=== PATIENT | male | born 1995 | race African-American/Black ===

== ENCOUNTER 2021-11-12 17:51 | Inpatient (IN) | payer OTHER ==
[2021-11-12 19:53] VITALS: BMI 23.6
[2021-11-12] MEDS ORDERED: MAG HYDROX/AL HYDROX/SIMETH 30 ML UNIT-DOSE CUP PO PRN (21:44)
[2021-11-12] MEDS ORDERED: IBUPROFEN 400 MG TABLET (FP) PO PRN (21:44)
[2021-11-12] MEDS ORDERED: P-EPHED 60MG/TRIPROLIDI 2.5MG TABLET PO PRN (21:44)
[2021-11-12] MEDS ORDERED: MAGNESIUM CITRATE 300 ML BOTTLE PO PRN (21:44)
[2021-11-12] MEDS ORDERED: ACETAMINOPHEN 325 MG TABLET (FP) PO PRN (21:44)
[2021-11-12] MEDS ORDERED: MAGNESIUM HYDROX 2400MG/30ML ORAL SUSPENSION 30 ML CUP PO PRN (21:44)
[2021-11-12] MEDS ORDERED: LOPERAMIDE HCL 2 MG CAPSULE PO PRN (21:44)
[2021-11-12] MEDS ORDERED: NICOTINE POLACRILEX 2 MG GUM BUC PRN (21:44)
[2021-11-12] MEDS ORDERED: guaiFENesin 200 MG/10 ML 10 ML UNIT-DOSE CUPS PO PRN (21:44)
[2021-11-13] MEDS: MELATONIN 5 MG TABLETS PO SCH ×2 (01:09→21:37)
[2021-11-13] MEDS: THIAMINE HCL 100 MG TABLET (FP) PO SCH ×2 (01:09→21:37)
[2021-11-13] MEDS: PRENATAL VITAMINS W/ FOLIC ACID TABLET (FP) PO SCH (11:11)
[2021-11-13] MEDS: NICOTINE 14 MG/24 HOURS TOPICAL PATCH TD SCH (11:13)
[2021-11-13] MEDS: hydrOXYzine PAMOATE 25 MG CAPSULE (FP) PO PRN ×2 (11:13→21:39)
[2021-11-13 12:29] LABS: URINE APPEARANCE CLEAR; URINE BILIRUBIN NEGATIVE (NEGATIVE); URINE COLOR YELLOW; URINE GLUCOSE (UA) NEGATIVE (NEGATIVE); URINE KETONE NEGATIVE (NEGATIVE); URINE LEUK ESTERASE NEGATIVE (NEGATIVE); URINE NITRITE NEGATIVE (NEGATIVE); URINE PROTEIN NEGATIVE (NEGATIVE)
[2021-11-13 12:44] LABS: HEMATOCRIT 44.9 % (35.4-49); HEMOGLOBIN 14.9 GM/dL (11.7-16.9); MCH 29.3 pg (25.7-33.7); MCHC 33.1 g/dl (32.0-35.9); MEAN CELL VOLUME 88.7 fl (80-96); MEAN PLT VOLUME 10.2 fl (7.5-11.1); PLATELET COUNT 188 10^3/uL (134-434); RBC 5.07 M/mm3 (4.00-5.60); RDW 13.6 % (11.9-15.9); WHITE BLOOD COUNT 4.7 K/mm3 (4.0-10.0)
[2021-11-13 13:22] LABS: ALBUMIN 3.4 g/dl (3.4-5.0)
[2021-11-13 13:25] LABS: CREATININE 1.1 mg/dL (0.55-1.3)
[2021-11-13 13:27] LABS: BILIRUBIN,TOTAL 1.1 mg/dL (0.2-1); TOT PROT 6.2 g/dl (6.4-8.2)
[2021-11-13] MEDS ORDERED: BENZOYL PEROXIDE 5% 60 GM GEL..GRAM. TP ONE (13:30)
[2021-11-13 13:42] LABS: SYPHILIS W/ RPR CONF NON-REACTIVE (NONREACTIVE)
[2021-11-13] MEDS: TOLNAFTATE 1% CREAM 15 GM TUBE TP SCH ×2 (14:33→21:38)
[2021-11-14] MEDS: hydrOXYzine PAMOATE 25 MG CAPSULE (FP) PO PRN (08:31)
[2021-11-14] MEDS: TOLNAFTATE 1% CREAM 15 GM TUBE TP SCH ×2 (10:21→21:48)
[2021-11-14] MEDS: PRENATAL VITAMINS W/ FOLIC ACID TABLET (FP) PO SCH (10:21)
[2021-11-14] MEDS: NICOTINE 14 MG/24 HOURS TOPICAL PATCH TD SCH (10:21)
[2021-11-14] MEDS: MELATONIN 5 MG TABLETS PO SCH (21:48)
[2021-11-14] MEDS: THIAMINE HCL 100 MG TABLET (FP) PO SCH (21:48)
[2021-11-14] MEDS: CALCIUM 500MG/VIT-D 200 UNITS COMBO TABLET (FP) PO SCH (21:56)
[2021-11-15] MEDS: NICOTINE 14 MG/24 HOURS TOPICAL PATCH TD SCH (10:07)
[2021-11-15] MEDS: PRENATAL VITAMINS W/ FOLIC ACID TABLET (FP) PO SCH (10:07)
[2021-11-15] MEDS: TOLNAFTATE 1% CREAM 15 GM TUBE TP SCH ×2 (10:07→22:06)
[2021-11-15] MEDS: COLLOIDAL OATMEAL 1 BAR EACH TP PRN (14:25)
[2021-11-15] MEDS: CALCIUM 500MG/VIT-D 200 UNITS COMBO TABLET (FP) PO SCH (21:59)
[2021-11-15] MEDS: THIAMINE HCL 100 MG TABLET (FP) PO SCH (21:59)
[2021-11-15] MEDS: MELATONIN 5 MG TABLETS PO SCH (22:00)
[2021-11-16] MEDS: PRENATAL VITAMINS W/ FOLIC ACID TABLET (FP) PO SCH (10:15)
[2021-11-16] MEDS: NICOTINE 14 MG/24 HOURS TOPICAL PATCH TD SCH (10:15)
[2021-11-16] MEDS: hydrOXYzine PAMOATE 25 MG CAPSULE (FP) PO PRN (10:17)
[2021-11-16] MEDS: TOLNAFTATE 1% CREAM 15 GM TUBE TP SCH ×2 (11:00→21:38)
[2021-11-16] MEDS: CALCIUM 500MG/VIT-D 200 UNITS COMBO TABLET (FP) PO SCH (21:38)
[2021-11-16] MEDS: THIAMINE HCL 100 MG TABLET (FP) PO SCH (21:38)
[2021-11-16] MEDS: MELATONIN 5 MG TABLETS PO SCH (21:38)
[2021-11-17] MEDS: NICOTINE 14 MG/24 HOURS TOPICAL PATCH TD SCH (10:34)
[2021-11-17] MEDS: PRENATAL VITAMINS W/ FOLIC ACID TABLET (FP) PO SCH (10:34)
[2021-11-17] MEDS: TOLNAFTATE 1% CREAM 15 GM TUBE TP SCH ×2 (10:35→21:15)
[2021-11-17] MEDS: hydrOXYzine PAMOATE 25 MG CAPSULE (FP) PO PRN ×2 (10:35→21:14)
[2021-11-17] MEDS: MELATONIN 5 MG TABLETS PO SCH (21:14)
[2021-11-17] MEDS: THIAMINE HCL 100 MG TABLET (FP) PO SCH (21:14)
[2021-11-17] MEDS: CALCIUM 500MG/VIT-D 200 UNITS COMBO TABLET (FP) PO SCH (21:15)
[2021-11-18] MEDS: COLLOIDAL OATMEAL 1 BAR EACH TP PRN (08:36)
[2021-11-18] MEDS: NICOTINE 14 MG/24 HOURS TOPICAL PATCH TD SCH (10:37)
[2021-11-18] MEDS: PRENATAL VITAMINS W/ FOLIC ACID TABLET (FP) PO SCH (10:37)
[2021-11-18] MEDS: hydrOXYzine PAMOATE 25 MG CAPSULE (FP) PO PRN ×2 (10:37→21:50)
[2021-11-18] MEDS: TOLNAFTATE 1% CREAM 15 GM TUBE TP SCH ×2 (10:37→21:51)
[2021-11-18] MEDS: THIAMINE HCL 100 MG TABLET (FP) PO SCH (21:50)
[2021-11-18] MEDS: MELATONIN 5 MG TABLETS PO SCH (21:50)
[2021-11-18] MEDS: CALCIUM 500MG/VIT-D 200 UNITS COMBO TABLET (FP) PO SCH (21:51)
[2021-11-19 07:10] VITALS: RESP 18
[2021-11-19] MEDS: PRENATAL VITAMINS W/ FOLIC ACID TABLET (FP) PO SCH (10:07)
[2021-11-19] MEDS: NICOTINE 14 MG/24 HOURS TOPICAL PATCH TD SCH (10:08)
[2021-11-19] MEDS: hydrOXYzine PAMOATE 25 MG CAPSULE (FP) PO PRN (10:09)
[2021-11-19] MEDS: TOLNAFTATE 1% CREAM 15 GM TUBE TP SCH ×2 (10:09→21:55)
[2021-11-19] MEDS: THIAMINE HCL 100 MG TABLET (FP) PO SCH (21:53)
[2021-11-19] MEDS: CALCIUM 500MG/VIT-D 200 UNITS COMBO TABLET (FP) PO SCH (21:53)
[2021-11-19] MEDS: MIRTAZAPINE 15 MG TABLET (FP) PO SCH (21:54)
[2021-11-19] MEDS: MELATONIN 5 MG TABLETS PO SCH (21:54)
[2021-11-20] MEDS: NICOTINE 14 MG/24 HOURS TOPICAL PATCH TD SCH (10:37)
[2021-11-20] MEDS: PRENATAL VITAMINS W/ FOLIC ACID TABLET (FP) PO SCH (10:38)
[2021-11-20] MEDS: TOLNAFTATE 1% CREAM 15 GM TUBE TP SCH ×2 (10:38→21:12)
[2021-11-20] MEDS: hydrOXYzine PAMOATE 25 MG CAPSULE (FP) PO PRN ×2 (10:39→21:12)
[2021-11-20] MEDS: CALCIUM 500MG/VIT-D 200 UNITS COMBO TABLET (FP) PO SCH (21:12)
[2021-11-20] MEDS: THIAMINE HCL 100 MG TABLET (FP) PO SCH (21:12)
[2021-11-20] MEDS: MIRTAZAPINE 15 MG TABLET (FP) PO SCH (21:12)
[2021-11-20] MEDS: MELATONIN 5 MG TABLETS PO SCH (21:12)
[2021-11-21] MEDS: NICOTINE 14 MG/24 HOURS TOPICAL PATCH TD SCH (10:16)
[2021-11-21] MEDS: PRENATAL VITAMINS W/ FOLIC ACID TABLET (FP) PO SCH (10:16)
[2021-11-21] MEDS: TOLNAFTATE 1% CREAM 15 GM TUBE TP SCH ×2 (10:16→23:22)
[2021-11-21] MEDS: hydrOXYzine PAMOATE 25 MG CAPSULE (FP) PO PRN (10:16)
[2021-11-21] MEDS: MELATONIN 5 MG TABLETS PO SCH (23:21)
[2021-11-21 23:22] VITALS: BP 147/96; PULSE 99; TEMP 98.2
[2021-11-21] MEDS: MIRTAZAPINE 15 MG TABLET (FP) PO SCH (23:22)
[2021-11-21] MEDS: CALCIUM 500MG/VIT-D 200 UNITS COMBO TABLET (FP) PO SCH (23:22)
[2021-11-21] MEDS: THIAMINE HCL 100 MG TABLET (FP) PO SCH (23:22)
== END 2021-11-21 11:55 | disposition left against medical advice (07) | DRG 770 ==
LOC: YASAS 17:51 → Y3W 22:06
PROVIDERS: ADMIT Allergy & Immunology; ATTEND Psychiatry & Neurology Pain Medicine
PROC: HZ42ZZZ Group Counseling for Substance Abuse Treatment, Cognitive-Behavioral (ICD-10-PCS; principal; 2021-11-12)
DX: F14.20 Cocaine dependence, uncomplicated (principal); F12.20 Cannabis dependence, uncomplicated; F17.210 Nicotine dependence, cigarettes, uncomplicated; F19.24 Other psychoactive substance dependence with psychoactive substance-induced mood disorder; F39 Unspecified mood [affective] disorder; F90.9 Attention-deficit hyperactivity disorder, unspecified type; F70 Mild intellectual disabilities; J45.20 Mild intermittent asthma, uncomplicated; G47.00 Insomnia, unspecified; B35.3 Tinea pedis; L70.0 Acne vulgaris; Z59.01 Sheltered homelessness
CPT/HCPCS: 36415; 80053; 81003; 85027; 86780; 86803; 87811; 93005; 93010; C9803-CS; U0003; U0005